=== PATIENT | female | born 1940 | race Caucasian/White ===

== ENCOUNTER 2023-02-17 12:50 | Outpatient (CLI) | payer MEDICARE, MEDICAID | END 2023-02-17 12:51 | disposition home or self-care (01) | LOC: CSHWCC 12:50 | PROVIDERS: ATTEND Nurse Practitioner Family | DX: I87.331 Chronic venous hypertension (idiopathic) with ulcer and inflammation of right lower extremity (principal); L97.812 Non-pressure chronic ulcer of other part of right lower leg with fat layer exposed; R60.0 Localized edema | CPT/HCPCS: 97139; 97597; G0463; 99204 ==

== ENCOUNTER 2023-03-10 10:37 | Outpatient (CLI) | payer MEDICARE, MEDICAID | END 2023-03-10 10:38 | disposition home or self-care (01) | LOC: CSHWCC 10:37 | PROVIDERS: ATTEND Nurse Practitioner Family | DX: R60.9 Edema, unspecified (principal); L97.812 Non-pressure chronic ulcer of other part of right lower leg with fat layer exposed; I87.331 Chronic venous hypertension (idiopathic) with ulcer and inflammation of right lower extremity | CPT/HCPCS: 11042; 29581 ==

== ENCOUNTER 2023-03-31 09:51 | Outpatient (CLI) | payer MEDICARE, MEDICAID | END 2023-03-31 09:52 | disposition home or self-care (01) | LOC: CSHWCC 09:51 | PROVIDERS: ATTEND Nurse Practitioner Family | DX: R60.9 Edema, unspecified (principal); I87.331 Chronic venous hypertension (idiopathic) with ulcer and inflammation of right lower extremity; L97.812 Non-pressure chronic ulcer of other part of right lower leg with fat layer exposed | CPT/HCPCS: 11042; 29581 ==

== ENCOUNTER 2023-05-04 09:50 | Outpatient (CLI) | payer MEDICARE, MEDICAID | END 2023-05-04 09:51 | disposition home or self-care (01) | LOC: CSHWCC 09:50 | PROVIDERS: ATTEND Physician Assistant | DX: I87.331 Chronic venous hypertension (idiopathic) with ulcer and inflammation of right lower extremity (principal); L97.812 Non-pressure chronic ulcer of other part of right lower leg with fat layer exposed; R60.0 Localized edema | CPT/HCPCS: 11042; 29581; G0463; 99213 ==

== ENCOUNTER 2023-05-04 12:19 | Emergency (ER) | payer MEDICARE, MEDICAID ==
[2023-05-04] MEDS ORDERED: methylPREDNISolone Sod Succ 40 MG VIAL ONE (13:24)
[2023-05-04 13:26] LABS: #Basophils 0.1 10x3/uL (0.0-0.2); #Eosinphils 1.5 10x3/uL (0.0-0.5); #Monocytes 0.8 10x3/uL (0.0-1.1); %Basophils 0.4 % (0.0-2.0); %Eosinophils 8.6 % (0.0-6.0); %Monocytes 4.6 % (0.0-10.0); Hematocrit 35.4 % (34.9-44.5); Hemoglobin 11.2 g/dL (12.0-15.5); Mean Corpuscular HGB CONC 31.6 g/dL (32.0-36.0); Mean Corpuscular Hemoglobin 31.5 pg (27.0-33.0); Mean Corpuscular Volume 99.4 fl (81.6-98.3); Mean Platelet Volume 10.3 fl (7.4-10.4); Platelet Count 221 10x3/uL (150-450); RBC Distribution Width 14.1 % (11.5-14.5); Red Blood Cell (RBC) Count 3.56 10x6/uL (3.90-5.03); White Blood Cell (WBC) Count 17.1 10x3/uL (3.5-10.5)
[2023-05-04 13:34] LABS: ALT (SGPT) 13 U/L (8-55); AST (SGOT) 15 U/L (5-34); Alkaline Phosphatase 85 U/L (40-110); Anion Gap 17 mmol/L (10-20); BUN (Urea Nitrogen) 94 mg/dL (9.8-20.1); Bilirubin, Total 0.3 mg/dL (0.2-1.2); Calc. Creatinine Clearance 0 mL/min (70-130); Calcium 8.4 mg/dL (7.8-10.44); Carbon Dioxide 19 mmol/L (23-31); Chloride 111 mmol/L (98-107); Estimated GFR 18; Glucose 106 mg/dL (83-110); Potassium 4.1 mmol/L (3.5-5.1); Sodium 143 mmol/L (136-145)
[2023-05-04 13:40] LABS: Troponin I 0.023 ng/mL (< 0.028)
[2023-05-04 14:08] LABS: Platelet Adequacy Comment Appears Adequate; Platelet Clumps MODERATE; RBC Morph Comment Within Normal Limits
== END 2023-05-04 14:13 | disposition home or self-care (01) ==
LOC: CSHERS 12:19
DX: B34.9 Viral infection, unspecified (principal); I10 Essential (primary) hypertension; E11.9 Type 2 diabetes mellitus without complications; E78.00 Pure hypercholesterolemia, unspecified; Z79.4 Long term (current) use of insulin
CPT/HCPCS: 71045; 80053; 84484; 85025; 93005; 94640; 94760; 96374; J2920; J7611

== ENCOUNTER 2023-05-12 09:49 | Outpatient (CLI) | payer MEDICARE, MEDICAID | END 2023-05-12 09:50 | disposition home or self-care (01) | LOC: CSHWCC 09:49 | PROVIDERS: ATTEND Preventive Medicine Undersea and Hyperbaric Medicine | DX: I87.331 Chronic venous hypertension (idiopathic) with ulcer and inflammation of right lower extremity (principal); L97.812 Non-pressure chronic ulcer of other part of right lower leg with fat layer exposed; R60.9 Edema, unspecified | CPT/HCPCS: 11042; 29581 ==

== ENCOUNTER 2023-05-31 09:32 | Outpatient (CLI) | payer MEDICARE, MEDICAID | END 2023-05-31 09:33 | disposition home or self-care (01) | LOC: CSHWCC 09:32 | PROVIDERS: ATTEND Physician Assistant | DX: E11.628 Type 2 diabetes mellitus with other skin complications (principal); I87.312 Chronic venous hypertension (idiopathic) with ulcer of left lower extremity | CPT/HCPCS: 97597 ==

== ENCOUNTER 2023-06-07 09:38 | Outpatient (CLI) | payer MEDICARE, MEDICAID | END 2023-06-07 09:39 | disposition home or self-care (01) | LOC: CSHWCC 09:38 | PROVIDERS: ATTEND Physician Assistant | DX: E11.628 Type 2 diabetes mellitus with other skin complications (principal); I87.312 Chronic venous hypertension (idiopathic) with ulcer of left lower extremity | CPT/HCPCS: 29581 ==

== ENCOUNTER 2023-06-21 11:36 | Outpatient (CLI) | payer MEDICARE, MEDICAID | END 2023-06-21 11:37 | disposition home or self-care (01) | LOC: CSHWCC 11:36 | PROVIDERS: ATTEND Physician Assistant | DX: I87.312 Chronic venous hypertension (idiopathic) with ulcer of left lower extremity (principal); E11.628 Type 2 diabetes mellitus with other skin complications; L97.929 Non-pressure chronic ulcer of unspecified part of left lower leg with unspecified severity | CPT/HCPCS: 11042 ==

== ENCOUNTER 2023-07-12 08:34 | Outpatient (CLI) | payer MEDICARE, MEDICAID | END 2023-07-12 08:35 | disposition home or self-care (01) | LOC: CSHWCC 08:34 | PROVIDERS: ATTEND Physician Assistant | DX: E11.628 Type 2 diabetes mellitus with other skin complications (principal); I87.312 Chronic venous hypertension (idiopathic) with ulcer of left lower extremity | CPT/HCPCS: 97597; G0463; 99213 ==

== ENCOUNTER 2023-08-23 13:05 | Outpatient (CLI) | payer MEDICARE, MEDICAID | END 2023-08-23 13:06 | disposition home or self-care (01) | LOC: CSHWCC 13:05 | PROVIDERS: ATTEND Physician Assistant | DX: I87.312 Chronic venous hypertension (idiopathic) with ulcer of left lower extremity (principal); E11.628 Type 2 diabetes mellitus with other skin complications; L97.929 Non-pressure chronic ulcer of unspecified part of left lower leg with unspecified severity | CPT/HCPCS: 11042; 29581 ==